=== PATIENT | male | born 1985 | race Caucasian/White ===

== ENCOUNTER 2017-01-01 22:06 | Emergency (ER) | payer BC ==
[~2017-01-01] VITALS: Ht 190.5 cm; Wt 67.1 kg
[2017-01-01 22:44] VITALS: BP 97/52
[2017-01-01 23:32] LABS: INR 4.7 (0.9-1.1); PROTHROMBIN TIME 50.1 SEC (9.30-11.50)
--- NOTE | 2017-01-01 23:48 | Emergency Room Report ---
History of Present Illness General Chief Complaint: Syncope Source: Patient, EMS Present Illness HPI Is a 31-year-old male with a history of heart valve defect needing surgery. He is currently taking Coumadin. His his blood pressures been low. He presents with chief complaint of syncope and possible head injury. He said he was sitting watching TV and got up to get something. On the way to the bathroom he passed out. He said his been happening for a while was standing up and getting dizzy but never passing out. No obvious trauma. No nausea no vomiting. No chest pain. Said that he hasn't eaten much today. Allergies: Coded Allergies: No Known Allergies (Unverified , 01/01/17) Patient History Past Medical History: see triage record, old chart reviewed Past Surgical History: other Pertinent Family History: none Social History: Denies: smoking Immunizations: other Reviewed Nursing Documentation: PMH: Agreed, PSxH: Agreed Nursing Documentation-PMH Past Medical History: No History, Except For Review of Systems Eye: Denies: eye pain, blurred vision ENT: Denies: ear pain, nose congestion, throat swelling Respiratory: Denies: cough, shortness of breath Cardiovascular: Denies: chest pain, palpitations Gastrointestinal: Denies: abdominal pain, diarrhea, nausea, vomiting Musculoskeletal: Denies: back pain, joint pain Skin: Denies: rash Neurological: Denies: headache, numbness Endocrine: Denies: increased thirst, increased urine Hematologic/Lymphatic: Denies: easy bruising All Other Systems: negative except mentioned in HPI Physical Exam Vital Signs Date Time Temp Pulse Resp B/P (MAP) Pulse Ox O2 Delivery O2 Flow Rate FiO2 01/01/17 21:57 98.2 100 16 99/67 100 Room Air vitals unremarkable Sp02 EP Interpretation: reviewed, normal General Appearance: well appearing, no apparent distress, alert Head: normocephalic, atraumatic Eyes: bilateral eye PERRL, bilateral eye EOMI ENT: hearing grossly normal, normal pharynx Neck: full range of motion, supple, no meningismus Respiratory: chest non-tender, lungs clear, normal breath sounds Cardiovascular #1: regular rate, rhythm, no murmur Gastrointestinal: normal bowel sounds, non tender, no mass, no organomegaly, no bruit, non-distended Musculoskeletal: back normal, gait/station normal, normal range of motion Psychiatric: mood/affect normal Skin: warm/dry Medical Decision Making Diagnostic Impression: Primary Impression: Syncope Qualified Codes: R55 - Syncope and collapse Additional Impression: Head injury Qualified Codes: S09.90XA - Unspecified injury of head, initial encounter ER Course Patient with possible head injury. No evidence of any bleed. We'll discharge home. Told patient to hold Coumadin for one day and cut down to 3 mg a day. EKG Diagnostic Results Rate: normal Rhythm: NSR ST Segments: no acute changes Rhythm Strip Diag. Results EP Interpretation: yes Rate: 85 Rhythm: NSR, no PVC's, no ectopy CT/MRI/US Diagnostic Results CT/MRI/US Diagnostic Results : Imaging Test Ordered: CT head Impression negative per radiologist Last Vital Signs Date Time Temp Pulse Resp B/P (MAP) Pulse Ox O2 Delivery O2 Flow Rate FiO2 01/01/17 22:44 98.2 97 24 97/52 99 Room Air Status: improved Disposition: HOME, SELF-CARE Condition: Stable Patient Instructions: Syncope Additional Instructions: Hold Coumadin for one day. On Monday, go down to 3 mg. Have your recheck level in a week. Return if symptom worsen. DARLENE HAIDER M.D. Jan 01, 2017 23:48
[2017-01-02 00:23] VITALS: BP_SYST 92; BP_SYST 97; BP_DIAS 52; BP_DIAS 58
--- NOTE | 2017-01-02 09:11 | Diagnostic Imaging Report ---
Indication: TRAUMA syncope, single episode 140 minutes Technique: Continuous helical CT scanning of the head was performed without intravenous contrast material. Axial and coronal 5 mm sections were generated. Radiation dose was minimized using automated exposure control Dose: Total Dose Length Product - DLP thousand [address] at [address] Dose Index - CTDIvol(s) 70.38 mGy. Comparison: Findings: The ventricular system is normal in size and configuration. There is no shift of midline structures. No abnormal extra-axial fluid collections are noted. There is no evidence of intracerebral bleeding. No other abnormal high or low density areas are noted within the brain. The calvarium is intact. The mastoids are clear. There is bilateral maxillary sinus disease. Impression: Normal CT scan of the head without contrast material. Incidental finding bilateral mastoid sinus disease This agrees with the preliminary interpretation provided overnight by [facility]. The CT scanner at [facility] is accredited by the [employer] and the scans are performed using protocols designed to limit radiation exposure to as low as reasonably achievable to attain images of sufficient resolution adequate for diagnostic evaluation.
--- NOTE | 2017-01-10 08:22 | Cardiology Report ---
APPROVED REPORT EKG Measurement Heart [id number] Normal sinus rhythm Left ventricular hypertrophy with QRS widening Nonspecific ST and T wave abnormality Prolonged QT Abnormal ECG
== END 2017-01-02 00:23 | disposition home or self-care (01) ==
LOC: EDBD 22:06 → EMR 22:30
DX: R55 Syncope and collapse (principal); S09.8XXA Other specified injuries of head, initial encounter; W19.XXXA Unspecified fall, initial encounter; Y92.89 Other specified places as the place of occurrence of the external cause; Z79.01 Long term (current) use of anticoagulants; J32.0 Chronic maxillary sinusitis
CPT/HCPCS: 36415; 70450; 85610; 93005; 96361; 99284